=== PATIENT | female | born 1990 | race Caucasian/White ===

== ENCOUNTER → 2018-03-29 12:15 | Observation (INO) ==
[2018-03-29 10:06] LABS: Basophils # 0.1 K/mcL (0.0-0.2); Basophils % 0.4 %; Eosinophils # 0.6 K/mcL (0.0-0.6); Eosinophils % 4.2 %; Hematocrit 33.8 % (35.3-44.9); Hemoglobin 11.3 g/dL (11.5-15.4); Immature Granulocytes % 0.7 % (0-4); Lymphocytes # 1.9 K/mcL (0.6-4.6); Lymphocytes % 14.1 %; Mean Corpuscular HGB Conc 33.4 g/dL (31.6-35.5); Mean Corpuscular Hemoglobin 29.9 pg (28.0-33.3); Mean Corpuscular Volume 89.4 fL (83.0-100.0); Mean Platelet Volume 10.7 fL (9.4-12.4); Monocytes # 0.6 K/mcL (0.0-1.3); Monocytes % 4.3 %; Neutrophils # 10.2 K/mcL (1.6-8.9); Platelet Count 217 K/mcL (140-400); Red Blood Count 3.78 M/mcL (3.82-4.97); Red Cell Distribution Width 14.5 % (11.5-14.5); Segmented Neutrophils % 76.3 %
[2018-03-29 10:07] LABS: Bilirubin,Urine Negative (Negative); Blood,Urine Negative (Negative); Clarity,Urine Clear (Clear); Color,Urine Yellow (Yellow); Glucose,Urine (UA) Normal (Normal); Ketones,Urine Negative (Negative); Leukocyte Esterase,Urine Negative (Negative); Nitrite,Urine Negative (Negative); Protein,Urine Negative (Neg-Trace); Specific Gravity,Urine 1.021 (1.010-1.025); Urobilinogen,Urine Normal (Normal)
[2018-03-29 10:35] LABS: Amphetamine Screen,Urine Negative ng/mL (Cutoff=1000); Barbiturate Screen,Urine Negative ng/mL (Cutoff=200); Benzodiazepines Screen,Urine Negative ng/mL (Cutoff=200); Cannabinoid Screen,Urine Negative ng/mL (Cutoff = 50); Cocaine Screen,Urine Negative ng/mL (Cutoff= 300); Opiate Screen,Urine Negative ng/mL (Cutoff=300); Phencyclidine Screen,Urine Negative ng/mL (Cutoff=25)
--- NOTE | 2018-03-29 11:52 | OB/GYN Progress Note ---
Date of Encounter: 03/29/18 Time of Encounter: 11:49 - Assessment and Plan (1) 35 weeks gestation of Current Visit: Yes Status: Acute NST reactive Bloodwork WNL Discharge home with PTL precautions and kick counts Follow up in office with routine prenatals and PRN (2) Fall at home Current Visit: Yes Status: Acute Qualifiers: Encounter type: initial encounter Qualified Code(s): W19.XXXA - Unspecified fall, initial encounter; Y92.009 - Unspecified place in unspecified non- institutional (private) residence as the place of occurrence of the external cause (3) NST (non-stress test) reactive Current Visit: Yes Status: Resolved Subjective - Subjective Principal diagnosis: Fall at 35 weeks Interval history: is a at 35 weeks 1 day that presents to triage with c/o fall at 0530 this am on her back. She has a positive blood type and states positive movement. She denies any leaking of fluid, contractions, or cramping. She has been seen by the midwives for her and it has been uncomplicated. Antepartum ROS: movement normal Objective - Vital Signs Vital Signs: Intake and Output 03/28/18 03/29/18 03/29/18 23:59 07:59 15:59 Other: Weight 106.8 kg Patient Weight 03/29/18 23:59 Weight 106.8 kg - Exam FHR: auscultation normal, category 1 FHR comments: Baseline 140 Irregular contractions/irritability Auscultation: bilateral: normal Abdomen: Present: normal appearance, soft, gravid Uterus: Present: normal. Absent: firm, tenderness - Labs Labs: Abnormal lab results WBC 13.4 K/mcL (4.3-11.1) H 03/29/18 09:45 RBC 3.78 M/mcL (3.82-4.97) L 03/29/18 09:45 Hgb 11.3 g/dL (11.5-15.4) L 03/29/18 09:45 Hct 33.8 % (35.3-44.9) L 03/29/18 09:45 Neutrophils # 10.2 K/mcL (1.6-8.9) H 03/29/18 09:45 Fibrinogen 505 mg/dL (169-393) H 03/29/18 09:45
== END | disposition home or self-care (01) ==
LOC: 1NENULAB
PROVIDERS: ADMIT Advanced Practice Midwife; ATTEND Advanced Practice Midwife